=== PATIENT | male | born 1985 | race Two or more races ===

== ENCOUNTER 2023-02-27 19:00 | Emergency (ER) | payer OTHER ==
[~2023-02-27] VITALS: Ht 180.3 cm; Wt 90.9 kg
[2023-02-27 19:11] VITALS: TEMP 98.4
[2023-02-27] MEDS ORDERED: CEPHALEXIN MONOHYDRATE 500 MG CAPSULE PO ONE (20:15)
[2023-02-27] MEDS ORDERED: LIDOCAINE 1% 10 ML VIAL SQ ONE (20:15)
[2023-02-27] MEDS ORDERED: IBUPROFEN 600 MG TABLET PO ONE (20:15)
[2023-02-27] MEDS ORDERED: DOXY-354 PO (20:25)
[2023-02-27] MEDS ORDERED: ACET-2080 PO (20:25)
[2023-02-27] MEDS ORDERED: CEPH-558 PO (20:25)
[2023-02-27] MEDS ORDERED: IBUP-1554 PO (20:28)
[2023-02-27 20:49] VITALS: BP 120/74; PULSE 78; RESP 16
== END 2023-02-27 20:55 | disposition home or self-care (01) ==
LOC: EMS 19:02
DX: N49.2 Inflammatory disorders of scrotum (principal)
CPT/HCPCS: 99283; 10060; J3490